=== PATIENT | female | born 1975 | race Caucasian/White ===

== ENCOUNTER 2017-08-29 11:23 | Inpatient (IN) | payer OTHER ==
[~2017-08-29] VITALS: Ht 175.3 cm; Wt 103.6 kg
[2017-08-29] MEDS ORDERED: ACETAMINOPHEN 500 MG TAB PO STA (11:41)
[2017-08-29] MEDS ORDERED: KETOROLAC TROMETHAMINE 30 MG/ML VIAL IV STA ×2 (11:41→14:46)
[2017-08-29] MEDS ORDERED: SODIUM CHLORIDE 0.9% 1000ML 2,000 ML IV STA (11:41)
--- NOTE | 2017-08-29 11:45 | EMERGENCY ROOM VISIT NOTE ---
History Report prepared by Haley: Grover Brown Under the Supervision of: Dr. Marvin Liu M.D. First contact with patient: 11:36 Chief Complaint: FLU LIKE SX Stated Complaint: LIGHT HEADED,VOMITING,BODY ACHES,FEVER History of Present Illness The patient is a 42 year old female who presents to the Emergency Room with complaints of cough that began yesterday. The patient complains of congestion, shortness of breath, body aches, f/c, urinary incontinence, and diarrhea. The patient denies any recent falls and back pain. The patient denies dysuria, hematuria, and abdominal pain. Source of History: patient Onset: [employer] Position: other (global) Timing: constant Associated Symptoms: + cough, + SOB, + diarrhea, No chest pain, No abdominal pain, No back pain, No urinary symptoms Review of Systems See HPI for pertinent positives and negatives. A total of ten systems were reviewed and were otherwise negative. Past Medical & Surgical Medical Problems: (1) Pseudotumor cerebri Social History Smoking Status: Current Every Day Smoker Current/Historical Medications Scheduled Acetazolamide (Diamox), 500 MG PO TID Folic Acid (Folvite), Unknown Dose PO DAILY Topiramate (Topamax), Unknown Dose PO DAILY Allergies Coded Allergies: Tramadol (Unverified Allergy, Severe, DELIRIUM, 08/29/17) Cephalexin (Unverified Allergy, Intermediate, DELIRIUM, 08/29/17) Physical Exam Vital Signs Date Time Temp Pulse Resp B/P (MAP) Pulse Ox O2 Delivery O2 Flow Rate FiO2 08/29/17 17:08 36.9 108 20 101/56 93 Room Air 08/29/17 15:43 108 18 100/53 100 Mask 8.0 08/29/17 15:04 88 16 95 Nasal Cannula 2.0 08/29/17 14:34 85 16 79/59 88 Room Air 08/29/17 13:45 94 16 95/57 94 Nasal Cannula 2.0 08/29/17 12:53 37.6 96 16 105/60 95 Nasal Cannula 2.0 08/29/17 12:23 106 22 105/60 92 Room Air 08/29/17 12:08 113 08/29/17 11:47 105 22 103/68 93 Room Air 08/29/17 11:41 93 Room Air 1/4/18 11:27 39.2 132 20 99/62 95 Room Air Physical Exam GENERAL: Awake, alert, uncomfortable appearing, in no distress HENT: Normocephalic, atraumatic. Dry cracked mucous membranes. EYES: Normal conjunctiva. Sclera non-icteric. NECK: Supple. No nuchal rigidity. FROM. No JVD. RESPIRATORY: left base with slight rhonchi otherwise clear. CARDIAC: ST.. Extremities warm and well perfused. Pulses equal. ABDOMEN: Soft, non-distended. Obese abdomen. No tenderness to palpation. No rebound or guarding. No masses. RECTAL: Deferred. MUSCULOSKELETAL: Chest examination reveals no tenderness. The back is symmetrical on inspection without obvious abnormality. There is no CVA tenderness to palpation. No joint edema. LOWER EXTREMITIES: Calves are equal size bilaterally and non-tender. No edema. No discoloration. NEURO: Normal sensorium. No sensory or motor deficits noted. SKIN: No rash or jaundice noted. Medical Decision & Procedures ER Provider Diagnostic Interpretation: Radiology results as stated below per my review and radiologist interpretation: SINGLE VIEW CHEST CLINICAL HISTORY: Fever. Sepsis. FINDINGS: An AP, portable, upright chest radiograph is obtained. No prior studies are available for comparison at the time of dictation. The examination is degraded by portable technique and patient rotation. The cardiomediastinal silhouette is unremarkable. There are minimal dependent airspace opacities. The lungs and pleural spaces are otherwise clear. No pneumothorax is seen. The bony thorax is grossly intact. IMPRESSION: There are minimal dependent airspace opacities, likely representing atelectasis. Clinical correlation will be required. Electronically signed by: Twan Brown M.D. 08/29/2017 12:27 PM Dictated Date/Time: 08/29/2017 12:26 PM CHEST 2 VIEWS ROUTINE CLINICAL HISTORY: 42 years-old Female presenting with sob, wbc 19, flu like symptoms. TECHNIQUE: PA and lateral views of the chest were obtained. COMPARISON: None. FINDINGS: Cardiomediastinal silhouette normal. Apparent nodular opacity at the left lung base. No other focal infiltrate. No large effusion or pneumothorax. Osseous structures normal. Upper abdomen normal. IMPRESSION: 1. Apparent nodular opacity at the left lung base, possibly atelectasis though this is indeterminate. Electronically signed by: Asa Desai M.D. 08/29/2017 2:01 PM Dictated Date/Time: 08/29/2017 2:00 PM Laboratory Results 08/29/17 11:55 Red Blood Count 4.75, Mean Corpuscular Volume 90.3, Mean Corpuscular Hemoglobin 31.2, Mean Corpuscular Hemoglobin Concent 34.5, Mean Platelet Volume 9.7, Neutrophils (%) (Auto) 85.0, Lymphocytes (%) (Auto) 4.8, Monocytes (%) (Auto) 9.6, Eosinophils (%) (Auto) 0.0, Basophils (%) (Auto) 0.1, Neutrophils # (Auto) 16.56, Lymphocytes # (Auto) 0.93, Monocytes # (Auto) 1.87, Eosinophils # (Auto) 0.00, Basophils # (Auto) 0.01 08/29/17 11:55 Test 08/29/17 11:55 08/29/17 12:15 08/29/17 13:00 White Blood Count 19.47 K/uL (4.8-10.8) Red Blood Count 4.75 M/uL (4.2-5.4) Hemoglobin 14.8 g/dL (12.0-16.0) Hematocrit 42.9 % (37-47) Mean Corpuscular Volume 90.3 fL (80-100) Mean Corpuscular Hemoglobin 31.2 pg (25-34) Mean Corpuscular Hemoglobin Concent 34.5 g/dl (32-36) Platelet Count 210 K/uL (130-400) Mean Platelet Volume 9.7 fL (7.4-10.4) Neutrophils (%) (Auto) 85.0 % Lymphocytes (%) (Auto) 4.8 % Monocytes (%) (Auto) 9.6 % Eosinophils (%) (Auto) 0.0 % Basophils (%) (Auto) 0.1 % Neutrophils # (Auto) 16.56 K/uL (1.4-6.5) Lymphocytes # (Auto) 0.93 K/uL (1.2-3.4) Monocytes # (Auto) 1.87 K/uL (0.11-0.59) Eosinophils # (Auto) 0.00 K/uL (0-0.5) Basophils # (Auto) 0.01 K/uL (0-0.2) RDW Standard Deviation 44.8 fL (36.4-46.3) RDW Coefficient of Variation 13.4 % (11.5-14.5) Immature Granulocyte % (Auto) 0.5 % Immature Granulocyte # (Auto) 0.10 K/uL (0.00-0.02) Anion Gap 7.0 mmol/L (3-11) Est Creatinine Clear Calc Drug Dose 96.6 ml/min Estimated GFR () 87.8 Estimated GFR (Non- 75.7 BUN/Creatinine Ratio 13.2 (10-20) Lactic Acid Level 1.2 mmol/L (0.4-2.0) Calcium Level 8.2 mg/dl (8.5-10.1) Magnesium Level 1.5 mg/dl (1.8-2.4) Total Bilirubin 0.4 mg/dl (0.2-1) Direct Bilirubin < 0.1 mg/dl (0-0.2) Aspartate Amino Transf (AST/SGOT) 18 U/L (15-37) Alanine Aminotransferase (ALT/SGPT) 21 U/L (12-78) Alkaline Phosphatase 47 U/L (45-117) Troponin I < 0.015 ng/ml (0-0.045) Total Protein 7.6 gm/dl (6.4-8.2) Albumin 3.4 gm/dl (3.4-5.0) Lipase 102 U/L (73-393) Influenza Type A Antigen POS for Influ A (NEG) Influenza Type B Antigen Neg for Influ B (NEG) Urine Color DK YELLOW Urine Appearance CLEAR (CLEAR) Urine pH 5.5 (4.5-7.5) Urine Specific [place] 1.019 (1.000-1.030) Urine Protein TRACE (NEG) Urine Glucose (UA) NEG (NEG) Urine Ketones TRACE (NEG) Urine Occult Blood TRACE (NEG) Urine Nitrite NEG (NEG) Urine Bilirubin NEG (NEG) Urine Urobilinogen NEG (NEG) Urine Leukocyte Esterase NEG (NEG) Urine WBC (Auto) 1-5 /hpf (0-5) Urine RBC (Auto) 0-4 /hpf (0-4) Urine Hyaline Casts (Auto) 5-10 /lpf (0-5) Urine Epithelial Cells (Auto) 20-30 /lpf (0-5) Urine Bacteria (Auto) NEG (NEG) Laboratory results reviewed by me Medications Administered Medications (Trade) Dose Ordered Sig/Amie Route Start Time Stop Time Status Last Admin Dose Admin Acetaminophen (Tylenol Tab) 1,000 mg NOW STAT PO 08/29/17 11:41 08/29/17 11:45 DC 08/29/17 12:17 1,000 MG Ketorolac Tromethamine (Toradol Inj) 15 mg NOW STAT IV 08/29/17 11:41 08/29/17 11:45 DC 08/29/17 12:17 15 MG Sodium Chloride 2,000 ml @ 999 mls/hr Q2H1M STAT IV 08/29/17 11:41 08/29/17 13:46 DC 08/29/17 12:07 999 MLS/HR Sodium Chloride 1,000 ml @ 999 mls/hr Q1H1M STAT IV 08/29/17 13:21 08/29/17 14:21 DC 08/29/17 13:45 999 MLS/HR Oseltamivir Phosphate (Tamiflu Cap) 75 mg NOW STAT PO 08/29/17 13:45 08/29/17 13:46 DC 08/29/17 14:29 75 MG Albuterol/ Ipratropium (Duoneb) 12 ml ONE ONCE INH 08/29/17 15:00 08/29/17 15:01 DC 08/29/17 15:04 12 ML Methylprednisolone Sodium Succinate (Solu-Medrol IV) 125 mg NOW STAT IV 08/29/17 14:46 08/29/17 14:48 DC 08/29/17 17:07 125 MG Levofloxacin (Levaquin / D5W) 750 mg NOW STAT IV 08/29/17 14:46 08/29/17 14:48 DC 08/29/17 17:07 750 MG Ketorolac Tromethamine (Toradol Inj) 15 mg NOW STAT IV 08/29/17 14:46 08/29/17 14:48 DC 08/29/17 17:08 15 MG ECG Indication: weakness Rate (beats per minute): 117 Rhythm: sinus tachycardia Findings: no acute ischemic change, other (normal axis) ED Course 1136: The patient was evaluated in room C5. A complete history and physical exam was performed. 1440: I checked up on the patient and they are doing marginally better. 1711: I discussed the patient with MARC Arevalo and will evaluate the patient for further treatment. Medical Decision I reviewed the patient's past medical history, medications, and the nursing notes as described above. Differential Diagnoses: pneumonia, bronchitis, UTI, influenza, viral syndrome, ACS, CHF, electrolyte, and imbalance. The patient is a 42 y/o woman with a pmhx of smoking and pseudotumor cerebri who presents to the emergency department with cough, congestion, f/c, nausea, diarrhea per HPI. On arrival the patient is uncomfortable but in NAD. Febrile to 39.2, tachy to 130s. Left basilar rhonchi with scant scattered wheeze. Otherwise clear. Labs notable for Influenza A positive. Leukocytosis to 19. CXR with ?left basilar infiltrate. Given Leukocytosis and febrile with tx with levaquin. Additional given steroids and nebs given active smoker. Tamifiul given sx within 48 hours of onset. Despite treatment including IVF hydration, patient still ill-appearing. Thus given influenza in the setting of smoking hx will admit. Case d/w Kike Arevalo PAC who will admit the patient for further management. Medication Reconcilliation Current Medication List: was personally reviewed by me Blood Pressure Screening Patient's blood pressure: Low blood pressure Consults Time Called: 1710 Consulting Physician: MARC Arevalo Returned Call: 1711 I discussed the patient with MARC Arevalo and will evaluate the patient for further treatment. Impression Primary Impression: Influenza A Additional Impression: Community acquired pneumonia Scribe Attestation The scribe's documentation has been prepared under my direction and personally reviewed by me in its entirety. I confirm that the note above accurately reflects all work, treatment, procedures, and medical decision making performed by me. Departure Information Referrals No Doctor, Assigned (PCP) Patient Instructions [facility] Problem Qualifiers
--- NOTE | 2017-08-29 12:28 | DIAGNOSTIC IMAGING REPORT ---
SINGLE VIEW CHEST CLINICAL HISTORY: Fever. Sepsis. FINDINGS: An AP, portable, upright chest radiograph is obtained. No prior studies are available for comparison at the time of dictation. The examination is degraded by portable technique and patient rotation. The cardiomediastinal silhouette is unremarkable. There are minimal dependent airspace opacities. The lungs and pleural spaces are otherwise clear. No pneumothorax is seen. The bony thorax is grossly intact. IMPRESSION: There are minimal dependent airspace opacities, likely representing atelectasis. Clinical correlation will be required. Electronically signed by: Twan Brown M.D. 08/29/2017 12:27 PM Dictated Date/Time: 08/29/2017 12:26 PM
[2017-08-29 12:30] LABS: BASO % 0.1 %; BASO ABS # 0.01 K/uL (0-0.2); HEMATOCRIT 42.9 % (37-47); HEMOGLOBIN 14.8 g/dL (12.0-16.0); LYMPH % 4.8 %; LYMPH ABS # 0.93 K/uL (1.2-3.4); MEAN CELL VOLUME 90.3 fL (80-100); MEAN CORPUSCULAR HEMOGLOBIN 31.2 pg (25-34); MEAN CORPUSCULAR HGB CONC 34.5 g/dl (32-36); MEAN PLATELET VOLUME 9.7 fL (7.4-10.4); MONO % 9.6 %; MONO ABS # 1.87 K/uL (0.11-0.59); NEUT ABS # 16.56 K/uL (1.4-6.5); PLATELET COUNT 210 K/uL (130-400); RED CELL DISTRIBUTION WIDTH CV 13.4 % (11.5-14.5); RED CELL DISTRIBUTION WIDTH SD 44.8 fL (36.4-46.3); WHITE BLOOD COUNT 19.47 K/uL (4.8-10.8)
[2017-08-29 12:56] LABS: ALBUMIN 3.4 gm/dl (3.4-5.0); ALKALINE PHOSPHATASE 47 U/L (45-117); ALT/SGPT 21 U/L (12-78); AST/SGOT 18 U/L (15-37); BLOOD UREA NITROGEN 12 mg/dl (7-18); CALCIUM 8.2 mg/dl (8.5-10.1); CARBON DIOXIDE 22 mmol/L (21-32); CREATININE 0.92 mg/dl (0.60-1.20); GLUCOSE 87 mg/dl (70-99); LIPASE 102 U/L (73-393); POTASSIUM 3.2 mmol/L (3.5-5.1); SODIUM 132 mmol/L (136-145); TOTAL PROTEIN 7.6 gm/dl (6.4-8.2)
[2017-08-29] MEDS ORDERED: SODIUM CHLORIDE 0.9% 1000ML 1,000 ML IV STA (13:21)
[2017-08-29 13:28] LABS: INFLUENZA B ANTIGEN Neg for Influ B (NEG)
[2017-08-29] MEDS ORDERED: OSELTAMIVIR PHOSPHATE 75 MG CAP PO STA (13:45)
--- NOTE | 2017-08-29 14:03 | DIAGNOSTIC IMAGING REPORT ---
CHEST 2 VIEWS ROUTINE CLINICAL HISTORY: 42 years-old Female presenting with sob, wbc 19, flu like symptoms. TECHNIQUE: PA and lateral views of the chest were obtained. COMPARISON: None. FINDINGS: Cardiomediastinal silhouette normal. Apparent nodular opacity at the left lung base. No other focal infiltrate. No large effusion or pneumothorax. Osseous structures normal. Upper abdomen normal. IMPRESSION: 1. Apparent nodular opacity at the left lung base, possibly atelectasis though this is indeterminate. Electronically signed by: Asa Desai M.D. 08/29/2017 2:01 PM Dictated Date/Time: 08/29/2017 2:00 PM
[2017-08-29] MEDS ORDERED: METHYLPREDNISOLONE 125 MG VIAL IV STA (14:46)
[2017-08-29] MEDS ORDERED: LEVAQUIN 750MG / 150ML D5W IV STA (14:46)
[2017-08-29] MEDS ORDERED: ALBUT/IPRATROP 3MG/0.5MG NEB 3 ML VIAL INH ONE (15:00)
[2017-08-29 15:04] VITALS: PULSE 88; O2SAT 95
[2017-08-29] MEDS ORDERED: LEVAQUIN 750MG / 150ML D5W ONE (17:04)
[2017-08-29] MEDS ORDERED: METHYLPREDNISOLONE 125 MG VIAL ONE (17:05)
[2017-08-29] MEDS ORDERED: KETOROLAC TROMETHAMINE 30 MG/ML VIAL ONE (17:05)
[2017-08-29] MEDS ORDERED: SODIUM CHLORIDE 0.9% 1000ML 1,000 ML IV SCH (17:42)
[2017-08-29] MEDS ORDERED: ONDANSETRON INJ 2 MG/ML 2 ML VIAL IV PRN (17:45)
[2017-08-29] MEDS ORDERED: ACETAMINOPHEN 325 MG TAB PO PRN (17:45)
[2017-08-29] MEDS ORDERED: ACET500C35 PO (18:51)
[2017-08-29] MEDS ORDERED: FOLI1TAB8 PO (18:51)
[2017-08-29] MEDS ORDERED: TOPI25TA10 PO (18:51)
[2017-08-29 19:00] VITALS: BP 102/63; PULSE 97; TEMP 37.1; O2SAT 95; Ht 175.3 cm; Wt 103.6 kg
--- NOTE | 2017-08-29 19:59 | History and Physical ---
History & Physical Date & Time of Service: Aug 29, 2017 at ~ 17:15 Chief Complaint: Body Aches, Cough, N/V/D Primary Care Physician: No Doctor, Assigned History of Present Illness 42 year old female who presents to the ED with fever, body aches, cough, and N/V /D. Patient reports her symptoms started yesterday. She has had fevers as high as 102. She reports cough is productive for brown sputum. She has had nausea, vomiting, and diarrhea. She denies hematemesis, coffee ground emesis, BRBPR, and dark tarry stools. No chest pain or shortness of breath. She denies lightheadedness, dizziness, diaphoresis, and syncopal events. No urinary symptoms. In the ED, patient testes positive for influenza A. CXR shows left basilar opacity. WBC 19K and febrile at 39.2. She presented with tachycardia that improved with IVF. She was also given Tamiflu, solumedrol, Levaquin, Tylenol, and neb. Past Medical/Surgical History Medical Problems: (1) Pseudotumor cerebri Status: Chronic Family History FH: breast cancer MOTHER FH: lung cancer MOTHER Social History Smoking Status: Current Every Day Smoker Alcohol Use: occasionally Allergies Coded Allergies: Tramadol (Unverified Allergy, Severe, DELIRIUM, 08/29/17) Cephalexin (Unverified Allergy, Intermediate, DELIRIUM, 08/29/17) Home Medications Scheduled Acetazolamide (Diamox), 500 MG PO TID Folic Acid (Folvite), Unknown Dose PO DAILY Topiramate (Topamax), Unknown Dose PO DAILY Review of Systems ROS per HPI, all other systems reviewed and negative Physical Exam Vital Signs Date Time Temp Pulse Resp B/P (MAP) Pulse Ox O2 Delivery O2 Flow Rate FiO2 08/29/17 19:00 37.1 97 22 102/63 95 Room Air 08/29/17 18:50 95 18 109/62 95 Room Air 08/29/17 17:08 36.9 108 20 101/56 93 Room Air 08/29/17 15:43 108 18 100/53 100 Mask 8.0 08/29/17 15:04 88 16 95 Nasal Cannula 2.0 08/29/17 14:34 85 16 79/59 88 Room Air 08/29/17 13:45 94 16 95/57 94 Nasal Cannula 2.0 08/29/17 12:53 37.6 96 16 105/60 95 Nasal Cannula 2.0 08/29/17 12:23 106 22 105/60 92 Room Air 08/29/17 12:08 113 08/29/17 11:47 105 22 103/68 93 Room Air 08/29/17 11:41 93 Room Air 08/29/17 11:27 39.2 132 20 99/62 95 Room Air General Appearance: WD/WN, + pertinent finding (ill appearing however in no acute distress) Head: normocephalic, atraumatic Eyes: normal inspection, EOMI, sclerae normal ENT: hearing grossly normal, + pertinent finding (mucous membranes dry) Neck: supple, no JVD, trachea midline Respiratory/Chest: no respiratory distress, + decreased breath sounds Cardiovascular: no edema, normal peripheral pulses, + tachycardia (regular rhythm) Abdomen/GI: normal bowel sounds, non tender, soft, no organomegaly Extremities/Musculoskelatal: normal inspection, no calf tenderness, normal capillary refill Neurologic/Psych: no motor/sensory deficits, alert, normal mood/affect, oriented x 3 Skin: normal color, warm/dry Diagnostics Laboratory Results Results Past 24 Hours Test 08/29/17 11:55 08/29/17 12:15 08/29/17 13:00 08/29/17 19:41 Range/Units White Blood Count 19.47 4.8-10.8 K/uL Red Blood Count 4.75 4.2-5.4 M/uL Hemoglobin 14.8 12.0-16.0 g/dL Hematocrit 42.9 37-47 % Mean Corpuscular Volume 90.3 80-100 fL Mean Corpuscular Hemoglobin 31.2 25-34 pg Mean Corpuscular Hemoglobin Concent 34.5 32-36 g/dl Platelet Count 210 130-400 K/uL Mean Platelet Volume 9.7 7.4-10.4 fL Neutrophils (%) (Auto) 85.0 % Lymphocytes (%) (Auto) 4.8 % Monocytes (%) (Auto) 9.6 % Eosinophils (%) (Auto) 0.0 % Basophils (%) (Auto) 0.1 % Neutrophils # (Auto) 16.56 1.4-6.5 K/uL Lymphocytes # (Auto) 0.93 1.2-3.4 K/uL Monocytes # (Auto) 1.87 0.11-0.59 K/uL Eosinophils # (Auto) 0.00 0-0.5 K/uL Basophils # (Auto) 0.01 0-0.2 K/uL RDW Standard Deviation 44.8 36.4-46.3 fL RDW Coefficient of Variation 13.4 11.5-14.5 % Immature Granulocyte % (Auto) 0.5 % Immature Granulocyte # (Auto) 0.10 0.00-0.02 K/uL Sodium Level 132 136-145 mmol/L Potassium Level 3.2 3.5-5.1 mmol/L Chloride Level 103 98-107 mmol/L Carbon Dioxide Level 22 21-32 mmol/L Anion Gap 7.0 3-11 mmol/L Blood Urea Nitrogen 12 7-18 mg/dl Creatinine 0.92 0.60-1.20 mg/dl Est Creatinine Clear Calc Drug Dose 96.6 ml/min Estimated GFR () 87.8 Estimated GFR (Non- 75.7 BUN/Creatinine Ratio 13.2 10-20 Random Glucose 87 70-99 mg/dl Lactic Acid Level 1.2 0.4-2.0 mmol/L Calcium Level 8.2 8.5-10.1 mg/dl Magnesium Level 1.5 1.8-2.4 mg/dl Total Bilirubin 0.4 0.2-1 mg/dl Direct Bilirubin < 0.1 0-0.2 mg/dl Aspartate Amino Transf (AST/SGOT) 18 15-37 U/L Alanine Aminotransferase (ALT/SGPT) 21 12-78 U/L Alkaline Phosphatase 47 45-117 U/L Troponin I < 0.015 0-0.045 ng/ml Total Protein 7.6 6.4-8.2 gm/dl Albumin 3.4 3.4-5.0 gm/dl Lipase 102 73-393 U/L Influenza Type A Antigen POS for Influ A NEG Influenza Type B Antigen Neg for Influ B NEG Urine Color DK YELLOW Urine Appearance CLEAR CLEAR Urine pH 5.5 4.5-7.5 Urine Specific [place] 1.019 1.000-1.030 Urine Protein TRACE NEG Urine Glucose (UA) NEG NEG Urine Ketones TRACE NEG Urine Occult Blood TRACE NEG Urine Nitrite NEG NEG Urine Bilirubin NEG NEG Urine Urobilinogen NEG NEG Urine Leukocyte Esterase NEG NEG Urine WBC (Auto) 1-5 0-5 /hpf Urine RBC (Auto) 0-4 0-4 /hpf Urine Hyaline Casts (Auto) 5-10 0-5 /lpf Urine Epithelial Cells (Auto) 20-30 0-5 /lpf Urine Bacteria (Auto) NEG NEG Microbiology Results 08/29/17 Blood Culture, Received Pending 08/29/17 Blood Culture, Received Pending 08/29/17 Urine Culture, Received Pending Diagnostic Radiology CXR IMPRESSION: 1. Apparent nodular opacity at the left lung base, possibly atelectasis though this is indeterminate. Impression Assessment and Plan SEPSIS DUE TO INFLUENZA A WITH POSSIBLE SUPERIMPOSED PNEUMONIA - admit to tele - patient presenting with fever, body aches, cough, N/V/D x 1 day; in the ED, tested positive for influenza A and CXR shows left basilar opacity - on presentation: WBC 19K, tachycardic, febrile; BP stable, lactic acid normal - HR improving with IVF - continue supportive care with IVF, Tylenol, and antiemetics - Tamiflu - Levaquin for possible pneumonia HYPOKALEMIA, HYPOMAGNESEMIA - due to GI loss - replace, follow labs PSEUDOTUMOR CEREBRI - continue Diamox - patient unsure of Topamax dose (I called several pharmacies to inquire about dosing however meds were not on file) - patient to bring in bottles tomorrow DVT PROPHYLAXIS - SQ Lovenox DISPO - In my clinical judgment this beneficiary meets acute admission criteria, established by [facility], that includes being hospitalized through two midnights. Attending Note: Patient is a 42 yr female with PMH of Pseudo tumor cerebri presents with history of fever, brownish productive sputum, generalized body ache, nausea, vomiting, diarrhea and associated SOB. Patient is positive for influenza A and CXR showed left lung base nodular opacity. She is found to be tachycardic with elevated leukocytosis and is able to maintain Sats without any oxygen support. Physical Exam: Vitals signs as noted above General Appearance:Moderately built and nourished, no apparent distress Head: normocephalic, Atraumatic Eyes: normal inspection, EOMI, PERRL Neck: supple, Trachea midline Respiratory/Chest: Normal breath sounds, CTA Cardiovascular: S1, S2, + Tachycardia, No murmur Abdomen/GI:Soft, Non tender, Bowel sounds present Extremities/Musculoskelatal:normal inspection, no edema Neurologic/Psych:AAOX3, grossly no focal neurological deficits Skin:normal color,warm Assessment and Plan: Sepsis Influenza A/CAP: IV Levaquin, Tamiflu Nebs PRN Oxygen Support PRN IV fluids Normal lactate levels Sputum/Blood cultures Electrolyte Imbalances: Hyponatremia/Hypokalemia/Hypomagnesemia Secondary to GI loses replace and monitor IV fluids I personally reviewed the record. Patient is interviewed and examined at bedside. Patient's care is coordinated with Carol Foreman SANITATION TECHNICIAN. Please refer to the documentation above for details of patient's presentation and for discussion of other issues. Advanced Directives Existing Living Will: No Existing Power of Stock Shaper: No VTE Prophylaxis VTE Risk Assessment Done? Y/N: Yes Risk Level: Moderate
[2017-08-29 20:04] VITALS: PULSE 99; O2SAT 91
[2017-08-29] MEDS: LEVALBUTEROL 1.25MG/0.5ML NEB INH SCH (20:04)
[2017-08-29] MEDS: NSS + 20MEQ KCL 1000ML 1,000 ML IV SCH (20:22)
[2017-08-29] MEDS: POTASSIUM CHLR 10 MEQ / WTR 10 MEQ in PREMIXED WATER 100 ML IV SCH ×2 (20:26→21:00)
[2017-08-29] MEDS: MAGNESIUM SULFATE 1GM / D5W 1 GM in PREMIXED IN D5W 100 ML IV SCH ×2 (20:33→21:00)
[2017-08-29] MEDS: OSELTAMIVIR PHOSPHATE 75 MG CAP PO SCH (20:37)
[2017-08-29] MEDS: AcetaZOLAMIDE 500 MG CAPCR PO SCH (21:00)
[2017-08-29 21:47] LABS: INR 1.2 (0.9-1.1)
[2017-08-29] MEDS ORDERED: INFLUENZA VIRUS QUAD VACCINE 0.5 ML SYR IM. ONE (22:15)
[2017-08-29] MEDS ORDERED: INFLUENZA ADMINISTRATION CHARGE ONE (22:15)
[2017-08-29 23:15] VITALS: BP 102/67; PULSE 88; TEMP 37.1; O2SAT 93
[2017-08-29] MEDS: ENOXAPARIN 40 MG/0.4 ML SYR SC SCH (23:50)
[2017-08-30] VITALS (12 sets, daily range): BP systolic 91–101; BP diastolic 60–67; PULSE 80–114; TEMP 36.3–37.1; O2SAT 91–98
[2017-08-30] MEDS: LEVALBUTEROL 1.25MG/0.5ML NEB INH SCH ×4 (02:00→19:09)
[2017-08-30 07:50] LABS: HEMATOCRIT 38.6 % (37-47); HEMOGLOBIN 12.8 g/dL (12.0-16.0); MEAN CELL VOLUME 91.7 fL (80-100); MEAN CORPUSCULAR HEMOGLOBIN 30.4 pg (25-34); MEAN CORPUSCULAR HGB CONC 33.2 g/dl (32-36); MEAN PLATELET VOLUME 9.4 fL (7.4-10.4); PLATELET COUNT 212 K/uL (130-400); RED CELL DISTRIBUTION WIDTH CV 14.4 % (11.5-14.5); RED CELL DISTRIBUTION WIDTH SD 48.5 fL (36.4-46.3); WHITE BLOOD COUNT 19.77 K/uL (4.8-10.8)
[2017-08-30] MEDS: NSS + 20MEQ KCL 1000ML 1,000 ML IV SCH ×2 (08:26→16:21)
[2017-08-30] MEDS: AcetaZOLAMIDE 500 MG CAPCR PO SCH ×3 (08:26→19:58)
[2017-08-30] MEDS: OSELTAMIVIR PHOSPHATE 75 MG CAP PO SCH ×2 (08:27→19:58)
[2017-08-30] MEDS ORDERED: COUGH DROP (SUGAR FREE) LOZ 24 LOZ/1 BOX ONE (08:31)
[2017-08-30] MEDS ORDERED: NURSING VERBAL MED ORDER ONE (08:45)
[2017-08-30] MEDS ORDERED: COUGH DROP (SUGAR FREE) LOZ 24 LOZ/1 BOX PO PRN (09:00)
[2017-08-30 09:31] LABS: CALCIUM 7.7 mg/dl (8.5-10.1); CREATININE 0.7 mg/dl (0.60-1.20)
--- NOTE | 2017-08-30 14:01 | Progress Note ---
Internal Med Progress Note Date of Service: Aug 30, 2017. Provider Documentation: SUBJECTIVE: Seen and examined at bedside states feeling better today Less cough and SOB Nausea, vomiting, abdominal pain,diarrhea resolved No new complaints OBJECTIVE: Vital Signs-as noted below Physical Exam: General Appearance:Obese, no apparent distress Head: normocephalic, Atraumatic Eyes: normal inspection, EOMI, PERRL Neck: supple, Trachea midline Respiratory/Chest: Normal breath sounds, CTA Cardiovascular: S1, S2, No murmur Abdomen/GI:Soft, Non tender, Bowel sounds present Extremities/Musculoskelatal:normal inspection, no edema Neurologic/Psych:AAOX3, grossly no focal neurological deficits Skin: normal color, warm Lab data as noted below. ASSESSMENT & PLAN: Sepsis Influenza A/CAP: Patient presented with fever, body aches, cough, N/V/D x 1 day continue IV Levaquin, Tamiflu Nebs PRN Oxygen Support PRN decrease IV fluids Normal lactate levels Sputum/Blood cultures:pending Leukocytosis, afebrile, received Solu-Medrol in ED yesterday Electrolyte Imbalances: Hyponatremia/Hypokalemia/Hypomagnesemia Secondary to GI loses Resolved monitor Pseudotumor Cerebri continue Diamox, Topiramate DVT Px: SQ Lovenox Disposition: Expect to discharge home when stable Vital Signs: Date Time Temp Pulse Resp B/P (MAP) Pulse Ox O2 Delivery O2 Flow Rate FiO2 08/30/17 12:02 Room Air 08/30/17 11:32 36.9 80 18 100/66 (77) 96 Room Air 08/30/17 08:05 Room Air 08/30/17 07:30 36.5 86 20 97/63 (74) 94 Room Air 08/30/17 07:08 86 16 94 Room Air 08/30/17 04:00 91 Room Air 08/30/17 03:37 36.3 89 21 99/65 (76) 92 Room Air 08/30/17 02:02 86 16 94 Room Air 08/30/17 00:00 91 Room Air 08/29/17 23:15 37.1 88 20 102/67 (79) 93 Room Air 08/29/17 20:04 99 16 91 Room Air 08/29/17 20:00 Room Air 08/29/17 19:00 37.1 97 22 102/63 95 Room Air 08/29/17 18:50 95 18 109/62 95 Room Air 08/29/17 17:08 36.9 108 20 101/56 93 Room Air 08/29/17 15:43 108 18 100/53 100 Mask 8.0 08/29/17 15:04 88 16 95 Nasal Cannula 2.0 08/29/17 14:34 85 16 79/59 88 Room Air Lab Results: Results Past 24 Hours Test 08/29/17 20:59 08/30/17 07:36 Range/Units Prothrombin Time 12.3 9.0-12.0 SECONDS Prothromb Time International Ratio 1.2 0.9-1.1 Activated Partial Thromboplast Time 31.0 21.0-31.0 SECONDS Partial Thromboplastin Ratio 1.2 White Blood Count 19.77 4.8-10.8 K/uL Red Blood Count 4.21 4.2-5.4 M/uL Hemoglobin 12.8 12.0-16.0 g/dL Hematocrit 38.6 37-47 % Mean Corpuscular Volume 91.7 80-100 fL Mean Corpuscular Hemoglobin 30.4 25-34 pg Mean Corpuscular Hemoglobin Concent 33.2 32-36 g/dl RDW Standard Deviation 48.5 36.4-46.3 fL RDW Coefficient of Variation 14.4 11.5-14.5 % Platelet Count 212 130-400 K/uL Mean Platelet Volume 9.4 7.4-10.4 fL Sodium Level 140 136-145 mmol/L Potassium Level 4.0 3.5-5.1 mmol/L Chloride Level 111 98-107 mmol/L Carbon Dioxide Level 24 21-32 mmol/L Anion Gap 5.0 3-11 mmol/L Blood Urea Nitrogen 10 7-18 mg/dl Creatinine 0.70 0.60-1.20 mg/dl Est Creatinine Clear Calc Drug Dose 130.5 ml/min Estimated GFR () 122.1 Estimated GFR (Non- 105.4 BUN/Creatinine Ratio 13.8 10-20 Random Glucose 130 70-99 mg/dl Calcium Level 7.7 8.5-10.1 mg/dl Magnesium Level 2.5 1.8-2.4 mg/dl Microbiology Results 08/30/17 Gram Stain, Received Pending 08/30/17 Sputum Culture, Received Pending
[2017-08-30] MEDS ORDERED: TOPIRAMATE 100 MG TAB PO ONE (14:15)
[2017-08-30] MEDS ORDERED: LEVOFLOXACIN / D5W 750 MG in PREMIXED IN D5W 150 ML IV SCH (15:00)
[2017-08-30] MEDS ORDERED: GUAIFENESIN SUGAR FREE 100 MG/5 ML UDC PO PRN (15:00)
[2017-08-30] MEDS: ENOXAPARIN 40 MG/0.4 ML SYR SC SCH (19:59)
[2017-08-31 01:45] VITALS: PULSE 93; O2SAT 97
[2017-08-31] MEDS: LEVALBUTEROL 1.25MG/0.5ML NEB INH SCH ×2 (01:45→07:00)
[2017-08-31 04:20] VITALS: BP 100/66; PULSE 86; TEMP 36.5; O2SAT 99
[2017-08-31 06:37] LABS: BASO % 0.1 %; BASO ABS # 0.01 K/uL (0-0.2); EOS % 0.2 %; EOS ABS # 0.03 K/uL (0-0.5); HEMATOCRIT 38.5 % (37-47); HEMOGLOBIN 12.6 g/dL (12.0-16.0); IG# 0.04 K/uL (0.00-0.02); LYMPH % 18.9 %; LYMPH ABS # 2.37 K/uL (1.2-3.4); MEAN CELL VOLUME 93.4 fL (80-100); MEAN CORPUSCULAR HEMOGLOBIN 30.6 pg (25-34); MEAN CORPUSCULAR HGB CONC 32.7 g/dl (32-36); MEAN PLATELET VOLUME 9.2 fL (7.4-10.4); MONO % 6.1 %; MONO ABS # 0.77 K/uL (0.11-0.59); NEUT % 74.4 %; NEUT ABS # 9.35 K/uL (1.4-6.5); PLATELET COUNT 199 K/uL (130-400); WHITE BLOOD COUNT 12.57 K/uL (4.8-10.8)
[2017-08-31 07:11] LABS: CALCIUM 7.7 mg/dl (8.5-10.1); CREATININE 0.62 mg/dl (0.60-1.20); POTASSIUM 4.1 mmol/L (3.5-5.1)
[2017-08-31 07:39] VITALS: PULSE 84; O2SAT 98
[2017-08-31] MEDS: AcetaZOLAMIDE 500 MG CAPCR PO SCH (07:56)
[2017-08-31 08:05] VITALS: BP 111/73; PULSE 75; TEMP 37; O2SAT 98
[2017-08-31] MEDS ORDERED: TOPIRAMATE 100 MG TAB PO SCH (09:00)
[2017-08-31] MEDS: OSELTAMIVIR PHOSPHATE 75 MG CAP PO SCH (09:18)
--- NOTE | 2017-08-31 10:29 | Progress Note ---
Internal Med Progress Note Date of Service: Aug 31, 2017. Provider Documentation: SUBJECTIVE: Seen and examined at bedside Doing much better today Denies cough, chest pain, SOB Nausea, vomiting, abdominal pain,diarrhea resolved No other complaints OBJECTIVE: Vital Signs-as noted below Physical Exam: General Appearance:Obese, no apparent distress Head: normocephalic, Atraumatic Eyes: normal inspection, EOMI, PERRL Neck: supple, Trachea midline Respiratory/Chest: Normal breath sounds, CTA Cardiovascular: S1, S2, No murmur Abdomen/GI:Soft, Non tender, Bowel sounds present Extremities/Musculoskelatal:normal inspection, no edema Neurologic/Psych:AAOX3, grossly no focal neurological deficits Skin: normal color, warm Lab data as noted below. ASSESSMENT & PLAN: Sepsis Influenza A/CAP: Patient presented with fever, body aches, cough, N/V/D x 1 day continue levaquin, Tamiflu Nebs PRN Oxygen Support PRN DC IV fluids Normal lactate levels Sputum cultures:pending Blood/Urine cultures: No growth Leukocytosis trending down, afebrile, received Solu-Medrol in ED Electrolyte Imbalances: Resolved Hyponatremia/Hypokalemia/Hypomagnesemia Secondary to GI loses monitor Pseudotumor Cerebri continue Diamox, Topiramate DVT Px: SQ Lovenox Disposition: Plan to discharge home today Follow up with Primary Care physician on Sep 04, 2017 at 7:05 AM At [facility] Complete the antibiotic/antiviral course as prescribed. Seek immediate medical attention if your symptoms reoccur or worsen Vital Signs: Date Time Temp Pulse Resp B/P (MAP) Pulse Ox O2 Delivery O2 Flow Rate FiO2 08/31/17 08:05 37.0 75 20 111/73 (86) 98 Room Air 08/31/17 08:01 Room Air 08/31/17 07:39 84 16 98 Room Air 08/31/17 04:20 36.5 86 18 100/66 (77) 99 Room Air 08/31/17 04:00 Room Air 08/31/17 01:45 93 16 97 Room Air 08/31/17 00:00 Room Air 08/30/17 23:15 37.1 83 20 101/67 (78) 97 Room Air 08/30/17 20:00 Room Air 08/30/17 19:22 36.5 82 16 101/65 (77) 97 Room Air 08/30/17 19:09 114 16 98 Room Air 08/30/17 16:01 Room Air 08/30/17 15:33 36.7 89 16 91/60 (70) 95 Room Air 08/30/17 14:21 86 16 94 Room Air 08/30/17 12:02 Room Air 08/30/17 11:32 36.9 80 18 100/66 (77) 96 Room Air Lab Results: Results Past 24 Hours Test 08/31/17 06:15 Range/Units White Blood Count 12.57 4.8-10.8 K/uL Red Blood Count 4.12 4.2-5.4 M/uL Hemoglobin 12.6 12.0-16.0 g/dL Hematocrit 38.5 37-47 % Mean Corpuscular Volume 93.4 80-100 fL Mean Corpuscular Hemoglobin 30.6 25-34 pg Mean Corpuscular Hemoglobin Concent 32.7 32-36 g/dl Platelet Count 199 130-400 K/uL Mean Platelet Volume 9.2 7.4-10.4 fL Neutrophils (%) (Auto) 74.4 % Lymphocytes (%) (Auto) 18.9 % Monocytes (%) (Auto) 6.1 % Eosinophils (%) (Auto) 0.2 % Basophils (%) (Auto) 0.1 % Neutrophils # (Auto) 9.35 1.4-6.5 K/uL Lymphocytes # (Auto) 2.37 1.2-3.4 K/uL Monocytes # (Auto) 0.77 0.11-0.59 K/uL Eosinophils # (Auto) 0.03 0-0.5 K/uL Basophils # (Auto) 0.01 0-0.2 K/uL RDW Standard Deviation 51.0 36.4-46.3 fL RDW Coefficient of Variation 15.0 11.5-14.5 % Immature Granulocyte % (Auto) 0.3 % Immature Granulocyte # (Auto) 0.04 0.00-0.02 K/uL Sodium Level 140 136-145 mmol/L Potassium Level 4.1 3.5-5.1 mmol/L Chloride Level 115 98-107 mmol/L Carbon Dioxide Level 19 21-32 mmol/L Anion Gap 6.0 3-11 mmol/L Blood Urea Nitrogen 13 7-18 mg/dl Creatinine 0.62 0.60-1.20 mg/dl Est Creatinine Clear Calc Drug Dose 148.4 ml/min Estimated GFR () 127.1 Estimated GFR (Non- 109.7 BUN/Creatinine Ratio 21.4 10-20 Random Glucose 88 70-99 mg/dl Calcium Level 7.7 8.5-10.1 mg/dl Magnesium Level 2.2 1.8-2.4 mg/dl Procalcitonin 0.54 0-0.5 ng/ml
[2017-08-31] MEDS ORDERED: TMF75 PO (10:33)
[2017-08-31] MEDS ORDERED: LVQ750 PO (10:33)
--- NOTE | 2017-08-31 10:34 | Discharge Instructions ---
Discharge Instructions Date of Service Aug 31, 2017. Admission Reason for Admission: Influenza Discharge Discharge Diagnosis / Problem: Influenza A, CAP Discharge Goals Goal(s): Decrease discomfort, Improve function Activity Recommendations Activity Limitations: resume your previous activity Exercise/Sports Limitations: as tolerated . Instructions / Follow-Up Instructions / Follow-Up Follow up with Primary Care physician on Sep 04, 2017 at 7:05 AM At [facility] Complete the antibiotic/antiviral course as prescribed. Seek immediate medical attention if your symptoms reoccur or worsen Current Hospital Diet Patient's current hospital diet: AHA Diet (Heart Healthy) Discharge Diet Recommended Diet: Regular Diet Pending Studies Studies pending at discharge: no Medical Emergencies . Who to Call and When: Medical Emergencies: If at any time you feel your situation is an emergency, please call 911 immediately. . Non-Emergent Contact Non-Emergency issues call your: Primary Care Provider Call Non-Emergent contact if: you have a fever, your pain is not controlled, your pain is worsening, your pain is unusual for you, your pain is concerning you, you have any medication questions Seek immediate medical attention if your symptoms reoccur or worsen . . "Provider Documentation" section prepared by Osmin Gtz. . VTE Core Measure Inpt VTE Proph given/why not?: Enoxaparin (Lovenox)SQ
[2017-08-31] MEDS: NSS + 20MEQ KCL 1000ML 1,000 ML IV SCH (10:47)
--- NOTE | 2017-08-31 10:54 | Discharge Summary ---
Discharge Summary Date of Service Aug 31, 2017. Discharge Summary Admission Date: Aug 29, 2017 at 17:43 Discharge Date: Aug 31, 2017 Discharge Disposition: Home Principal Diagnosis: Influenza A, CAP Procedures: CXR: Apparent nodular opacity at the left lung base, possibly atelectasis though this is indeterminate. Consultations: None Pending Studies/Follow-Up: Follow up with Primary Care physician on Sep 04, 2017 at 7:05 AM At [facility] Complete the antibiotic/antiviral course as prescribed. Seek immediate medical attention if your symptoms reoccur or worsen Medication Reconciliation New Medications: Levofloxacin (Levofloxacin) 750 Mg Tab 750 MG PO DAILY for 5 Days, #5 EA Oseltamivir Phosphate (Tamiflu) 75 Mg Cap 75 MG PO BID for 4 Days, #7 CAP Continued Medications: Acetazolamide (Diamox) 500 Mg Cap 500 MG PO TID Folic Acid (Folvite) Unknown Strength Tab Unknown Dose PO DAILY, TAB Topiramate (Topamax) Unknown Strength Tab Unknown Dose PO DAILY for 30 Days, TAB 2 Refills Admission Information HPI (per Admitting provider): 42 year old female who presents to the ED with fever, body aches, cough, and N/V /D. Patient reports her symptoms started yesterday. She has had fevers as high as 102. She reports cough is productive for brown sputum. She has had nausea, vomiting, and diarrhea. She denies hematemesis, coffee ground emesis, BRBPR, and dark tarry stools. No chest pain or shortness of breath. She denies lightheadedness, dizziness, diaphoresis, and syncopal events. No urinary symptoms. In the ED, patient testes positive for influenza A. CXR shows left basilar opacity. WBC 19K and febrile at 39.2. She presented with tachycardia that improved with IVF. She was also given Tamiflu, solumedrol, Levaquin, Tylenol, and neb. Physical Exam (per Admitting): General Appearance: WD/WN, + pertinent finding (ill appearing however in no acute distress) Head: normocephalic, atraumatic Eyes: normal inspection, EOMI, sclerae normal ENT: hearing grossly normal, + pertinent finding (mucous membranes dry) Neck: supple, no JVD, trachea midline Respiratory/Chest: no respiratory distress, + decreased breath sounds Cardiovascular: no edema, normal peripheral pulses, + tachycardia (regular rhythm) Abdomen/GI: normal bowel sounds, non tender, soft, no organomegaly Extremities/Musculoskelatal: normal inspection, no calf tenderness, normal capillary refill Neurologic/Psych: no motor/sensory deficits, alert, normal mood/affect, oriented x 3 Skin: normal color, warm/dry Hospital Course Sepsis Influenza A/CAP: Patient presented with fever, body aches, cough, N/V/D x 1 day continue levaquin, Tamiflu Nebs PRN Oxygen Support PRN DC IV fluids Normal lactate levels Sputum cultures:pending Blood/Urine cultures: No growth Leukocytosis trending down, afebrile, received Solu-Medrol in ED Electrolyte Imbalances: Resolved Hyponatremia/Hypokalemia/Hypomagnesemia Secondary to GI loses monitor Pseudotumor Cerebri continue Diamox, Topiramate DVT Px: SQ Lovenox Disposition: Plan to discharge home today Follow up with Primary Care physician on Sep 04, 2017 at 7:05 AM At [facility] Complete the antibiotic/antiviral course as prescribed. Seek immediate medical attention if your symptoms reoccur or worsen Total time spent on discharge = 32 minutes This includes examination of the patient, discharge planning, medication reconciliation, and communication with other providers. Discharge Instructions Discharge Instructions Date of Service Aug 31, 2017. Admission Reason for Admission: Influenza Discharge Discharge Diagnosis / Problem: Influenza A, CAP Discharge Goals Goal(s): Decrease discomfort, Improve function Activity Recommendations Activity Limitations: resume your previous activity Exercise/Sports Limitations: as tolerated . Instructions / Follow-Up Instructions / Follow-Up Follow up with Primary Care physician on Sep 04, 2017 at 7:05 AM At [facility] Complete the antibiotic/antiviral course as prescribed. Seek immediate medical attention if your symptoms reoccur or worsen Current Hospital Diet Patient's current hospital diet: AHA Diet (Heart Healthy) Discharge Diet Recommended Diet: Regular Diet Pending Studies Studies pending at discharge: no Medical Emergencies . Who to Call and When: Medical Emergencies: If at any time you feel your situation is an emergency, please call 911 immediately. . Non-Emergent Contact Non-Emergency issues call your: Primary Care Provider Call Non-Emergent contact if: you have a fever, your pain is not controlled, your pain is worsening, your pain is unusual for you, your pain is concerning you, you have any medication questions Seek immediate medical attention if your symptoms reoccur or worsen . . "Provider Documentation" section prepared by Osmin Gtz. . VTE Core Measure Inpt VTE Proph given/why not?: Enoxaparin (Lovenox)SQ <Electronically signed by Osmin Gtz MD> Signed: 08/31/17 1054 Signed: The status of this report is Signed * If report status is Draft, the document has not been finalized by the responsible provider.
[2017-08-31 10:59] VITALS: BP 111/73; PULSE 75; TEMP 37; O2SAT 98
== END 2017-08-31 12:10 | disposition home or self-care (01) | DRG 871 ==
LOC: C.EDB 11:25 → C.2T 17:43 → ENRESERV 18:22
PROVIDERS: ADMIT Internal Medicine; ATTEND Internal Medicine
DX: A41.9 Sepsis, unspecified organism (principal); J10.00 Influenza due to other identified influenza virus with unspecified type of pneumonia; E87.1 Hypo-osmolality and hyponatremia; E87.6 Hypokalemia; E83.42 Hypomagnesemia; G93.2 Benign intracranial hypertension; F17.200 Nicotine dependence, unspecified, uncomplicated; Z79.899 Other long term (current) drug therapy; Z88.1 Allergy status to other antibiotic agents; Z80.3 Family history of malignant neoplasm of breast; Z80.1 Family history of malignant neoplasm of trachea, bronchus and lung